=== PATIENT | male | born 1975 | race Caucasian/White ===

== ENCOUNTER 2024-10-17 10:24 | Emergency (ER) | payer OTHER, SELFPAY ==
[2024-10-17 10:25] VITALS: BP 160/79
[2024-10-17 11:46] VITALS: BP 131/65
[2024-10-17 12:00] VITALS: BP 132/62
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
[2024-10-17] MEDS: REGLAN 10 MG IV (12:59)
[2024-10-17] MEDS: NSS 1000 IV (12:59)
[2024-10-17] MEDS: DECADRON 10 MG IV (13:00)
[2024-10-17] MEDS: BENADRYL 25 MG IV (13:00)
[2024-10-17 13:03] VITALS: BP 115/58
== END 2024-10-17 14:59 | disposition home or self-care (01) ==
LOC: EMR 10:24
PROVIDERS: EMERGENCY PHYSICIAN Emergency Medicine; FAMILY PHYSICIAN Family Medicine
DX: R51.9 Headache, unspecified (principal); E78.00 Pure hypercholesterolemia, unspecified; F17.210 Nicotine dependence, cigarettes, uncomplicated
CPT/HCPCS: 96374; 96375; 96361; 99284; 70450